=== PATIENT | female | born 1995 | race Caucasian/White ===

== ENCOUNTER → 2016-11-03 | Outpatient (CLI) | payer BC, OTHER ==
[2016-11-06 01:00] LABS: CHLAMYDIA TRACH RNA*** NOT DETECTED (NOT DETECTED); GC (NEIS GONORRHOEAE)RNA** NOT DETECTED (NOT DETECTED)
== END | disposition home or self-care (01) ==
LOC: C.LABSPEC 12:37
PROVIDERS: ATTEND Obstetrics & Gynecology
DX: Z11.3 Encounter for screening for infections with a predominantly sexual mode of transmission (principal)

== ENCOUNTER → 2016-11-03 | Outpatient (CLI) | payer BC | END | disposition home or self-care (01) | LOC: C.PAPS 10:35 | PROVIDERS: ATTEND Obstetrics & Gynecology | DX: Z01.419 Encounter for gynecological examination (general) (routine) without abnormal findings (principal) ==

== ENCOUNTER 2021-06-02 18:38 | Inpatient (IN) ==
[2021-06-02] MEDS ORDERED: ONDANSETRON INJ 2 MG/ML 2 ML VIAL IV PRN (19:07)
[2021-06-02] MEDS ORDERED: LACTATED RINGER'S 1,000 ML IV ONE (19:07)
[2021-06-02] MEDS ORDERED: TERBUTALINE SULFATE 1 MG/ML VIAL SQ PRN (19:07)
[2021-06-02] MEDS ORDERED: ACETAMINOPHEN 325 MG TAB PO PRN ×2 (19:07→20:36)
[2021-06-02] MEDS ORDERED: oxyCODONE/ACETAMINOPHEN 5mg/325mg TAB PO PRN ×2 (19:07→20:36)
[2021-06-02] MEDS ORDERED: LACTATED RINGER'S 1,000 ML IV PRN (19:07)
[2021-06-02 19:43] LABS: Appearance Urine Cloudy (Clear); Bilirubin Urine Negative (Negative); Blood Urine 3+ (Negative); Color Urine Yellow; Glucose Urine UA Negative (Negative); Ketones Urine Negative (Negative); Leukocyte Esterase Urine 1+ (Negative); Nitrite Urine Negative (Negative); Protein Urine 1+ (Negative); Specific Gravity Urine 1.025 (1.000-1.030); Urobilinogen Urine Negative (Negative); pH Urine 6.5 (4.5-7.5)
[2021-06-02 19:47] LABS: Basophils # (auto) 0.02 K/uL (0-0.2); Basophils % (auto) 0.2 %; Eosinophils # (auto) 0.06 K/uL (0-0.5); Eosinophils % (auto) 0.5 %; Hematocrit (blood only) 35.2 % (37-47); Immature Granulocytes # (auto) 0.03 K/uL (0.00-0.02); Immature Granulocytes % (auto) 0.3 %; Lymphocytes # (auto) 2.24 K/uL (1.2-3.4); Lymphocytes % (auto) 18.9 %; Mean Corpuscular Hemoglobin 30.5 pg (25-34); Mean Corpuscular Hgb Conc 34.1 g/dL (32-36); Mean Corpuscular Volume 89.3 fL (80-100); Mean Platelet Volume 10.8 fL (7.4-10.4); Monocytes % (auto) 7.6 %; Neutrophils # (auto) 8.61 K/uL (1.4-6.5); Neutrophils % (auto) 72.5 %; Platelet Count 261 K/uL (130-400); RDW Coefficient of Variation 13.4 % (11.5-14.5); Red Blood Count 3.94 M/uL (4.2-5.4); White Blood Count 11.86 K/uL (4.8-10.8)
[2021-06-02 19:51] LABS: Bacteria Urine Negative (Negative); Epithelial Cell Urine >30 /lpf (0-5); RBC Urine >30 /hpf (0-4); WBC Urine >30 /hpf (0-5)
[2021-06-02 19:52] LABS: Calcium Oxalate Crystals Urine Present (None Prsent)
[2021-06-02] MEDS ORDERED: OXYTOCIN 30 UNITS/500ML NSS ONE (19:57)
[2021-06-02] MEDS ORDERED: LIDOCAINE 1% MPF 5 ML VIAL ONE (20:03)
[2021-06-02] MEDS ORDERED: LIDOCAINE 1% LOCAL 20 ML VIAL ONE (20:09)
[2021-06-02] MEDS ORDERED: OXYTOCIN 30 UNITS/500 ML BAG IV PRN ×2 (20:30→20:36)
[2021-06-02] MEDS ORDERED: SUPERCREAM 0.870% 15 GM JAR EXT PRN (20:36)
[2021-06-02] MEDS ORDERED: DIPHTHERIA/TETANUS/PERTUSSIS 0.5 ML SYR/VIAL IM ONE (20:36)
[2021-06-02] MEDS ORDERED: HYDROCORTISONE ACETATE 25 MG SUPP PR PRN (20:36)
[2021-06-02] MEDS ORDERED: bisacodyL 10 MG SUPP PR PRN (20:36)
[2021-06-02] MEDS ORDERED: MEASLES, MUMPS & RUBELLA VIRUS VIAL SQ ONE (20:36)
[2021-06-02] MEDS ORDERED: BENZOCAINE 20% AER SPR 82.5 GM CAN EXT PRN (20:36)
--- NOTE | 2021-06-02 20:43 | Delivery Summary ---
Vaginal Delivery Summary Date of Service June 02, 2021 Vaginal Delivery Summary Date June 02, 2021 Procedure : labor and delivery Time 2005 p.m. Details of delivery: Patient is a 25-year-old G1, P0 at 34 weeks and 1 day gestation who presents to labor and delivery in active labor, spontaneous rupture of membranes and progressed quickly to fully dilatation and delivered precipitously at 34 and 1 weeks. She was found to be 8 cm dilated and grossly ruptured, progressed to f ully dilatation and pushed through only 3 contractions and delivered the head without difficulty. There was a nuchal cord around the neck x1 which was reduced. He was handed to the mother by mouth and nose were suctioned, there was breathing and moving. Cord was clamped x2 and cut and he was handed off to the waiting pediatric team with Dr. Garibay. Cord blood was obtained. Vagina perineum were checked for lacerations there was a small second-degree vaginal laceration at 5 o'clock position and small first-degree right labial laceration. Rest of the vagina and perineum were intact. 1% lidocaine was used for local anesthesia. First vaginal laceration was repaired with 2-0 Vicryl in a running locked fashion excellent hemostasis achieved. Then labia laceration was repaired with 3-0 Vicryl on SH needle with figure of 8 stitches x3. Excellent hemostasis achieved. Placenta was found to be in the vagina, delivered spontaneous legs intact and complete. Uterus was explored found to have small clots and membranes and those were removed removed. Fundus was firm. EBL was 200 mL. Mom and baby tolerated procedure well, sponge needle instrument count was correct x2. There was a viable female infant Apgars 8, 9 weight is pending. No complications happened and I was present during whole procedure.
--- NOTE | 2021-06-02 20:49 | History & Physical Report ---
Date of Service June 02, 2021 Assessment & Plan (1) labor with delivery: Plan: 5-year-old G1, P0 at 34 weeks and 1 days of gestation presented to labor and delivery with back pain, found to be in active labor and spontaneously ruptured and quickly progressed to full dilatation and delivered baby precipitously. See dictated delivery note and HPI for details. Mom and baby are doing well stable, We will continue to monitor for care. (2) premature rupture of membranes: Admission and Anticipated Discharge Date Admission Date: June 02, 2021 History of Present Illness Primary Care Provider: Aviva Bhakta PA-C Patient is a 25-year-old G1, P0 at 34 weeks 1 day gestation who started to have lower abdominal cramping and spotting this morning after having sexual intercourse with her partner. She had constant back pain since 9 AM when she went to work and her pain got worse and she came back home at 3 PM. Back pain has been in the midline and lower back and has been constant and getting sharper every 3 to 4 minutes. She started to have spotting type of bleeding this afternoon but was never heavy. She has not called answering service about these. She presented to labor and delivery and complained of labor back pain which got sharp and worse. She then spontaneously ruptured at 1930 p.m. When I did speculum exam I saw grossly ruptured pinkish amniotic fluid and head in the vagina. Cervix was 8 cm dilated, 80% effaced head was at 0 station. She really progressed to fully dilatation and desire to push it within few minutes. She delivered a viable female at 2005 p.m. See dictated delivery note for details. Her has been complicated by, 1 obesity with 2 anxiety depression, 3 unknown GBS 4 father of baby is not involved Allergies Allergy/AdvReac Type Severity Reaction Status Date / Time No Known Allergies Allergy Verified 06/02/21 18:51 Home Medications Medication Instructions Recorded Confirmed Type aripiprazole 5 mg tablet (Abilify) 5 mg PO HS 06/02/21 06/02/21 History hydroxyzine HCl 25 mg tablet 25 mg PO HS 06/02/21 06/02/21 History vortioxetine 5 mg tablet 5 mg PO HS 06/02/21 06/02/21 History (Trintellix) Patient History Medical History (Updated 06/02/21 @ 20:48 by Jocelyn Barboza MD) Depression Family History Other No pertinent family history in first degree relatives Social History Smoking Status: Never smoker Hx Alcohol Use: No Hx Substance Use: Yes Last Used Substance: Days (ago) Preferred Language: Sami Communication Ability: Effective Beliefs That Will Affect Care: None marital status: Single Current Living Situation: Family Other Information That Helps Us Care for You: No Feels Safe at Home: Yes Safety Concerns: Feels Safe At This Time Assistive Devices: None Review of Systems as per Subjective / HPI Physical Exam Constitutional: well developed, well nourished and + acute distress (Severe back pain) Genitourinary: normal external appearance (Grossly ruptured pinkish amniotic fluid) Manual OB Exam: + cervical dilation 8 cm, + cervical effacement 80% and + station 0 OB Exam Monitor Tracing: + external uterine monitor used and + category I Results & Data ([facility]) Vital Signs (Past 12 Hours) Vital Signs Temp Pulse Resp BP Pulse Ox 06/02/21 20:26 84 125/66 06/02/21 20:14 87 100 06/02/21 20:09 68 99 06/02/21 20:05 118 H 92 06/02/21 20:04 99 H 97 06/02/21 18:49 37.0 C 18 06/02/21 18:48 78 148/79 H Laboratory Results Lab Results 06/02/21 06/02/21 Range/Units 19:25 19:34 WBC 11.86 H (4.8-10.8) K/uL RBC 3.94 L (4.2-5.4) M/uL Hgb 12.0 (12.0-16.0) g/dL Hct 35.2 L (37-47) % MCV 89.3 (80-100) fL MCH 30.5 (25-34) pg MCHC 34.1 (32-36) g/dL RDW Std Deviation 44.0 (36.4-46.3) fL RDW Coeff of Toni 13.4 (11.5-14.5) % Plt Count 261 (130-400) K/uL MPV 10.8 H (7.4-10.4) fL Immature Gran % (Auto) 0.3 % Neut % (Auto) 72.5 % Lymph % (Auto) 18.9 % [place] % (Auto) 7.6 % Eos % (Auto) 0.5 % Baso % (Auto) 0.2 % Neut # (Auto) 8.61 H (1.4-6.5) K/uL Lymph # (Auto) 2.24 (1.2-3.4) K/uL [place] # (Auto) 0.90 H (0.11-0.59) K/uL Eos # (Auto) 0.06 (0-0.5) K/uL Baso # (Auto) 0.02 (0-0.2) K/uL Immature Gran # (Auto) 0.03 H (0.00-0.02) K/uL Urine Color Yellow Urine Appearance Cloudy A (Clear) Urine pH 6.5 (4.5-7.5) Ur Specific [place] 1.025 (1.000-1.030) Urine Protein 1+ H (Negative) Urine Glucose (UA) Negative (Negative) Urine Ketones Negative (Negative) Urine Blood 3+ H (Negative) Urine Nitrite Negative (Negative) Urine Bilirubin Negative (Negative) Urine Urobilinogen Negative (Negative) Ur Leukocyte Esterase 1+ H (Negative) Urine RBC >30 H (0-4) /hpf Urine WBC >30 H (0-5) /hpf Ur Epithelial Cells >30 H (0-5) /lpf Calcium Oxalate Crystal Present A (None Prsent) Urine Bacteria Negative (Negative)
[2021-06-03 06:38] LABS: Hematocrit (blood only) 32.4 % (37-47); Hemoglobin 11.1 g/dL (12.0-16.0); Mean Corpuscular Hemoglobin 30.7 pg (25-34); Mean Corpuscular Hgb Conc 34.3 g/dL (32-36); Mean Corpuscular Volume 89.8 fL (80-100); Mean Platelet Volume 10.6 fL (7.4-10.4); Platelet Count 239 K/uL (130-400); RDW Coefficient of Variation 13.4 % (11.5-14.5); RDW Standard Deviation 43.9 fL (36.4-46.3); Red Blood Count 3.61 M/uL (4.2-5.4); White Blood Count 14.18 K/uL (4.8-10.8)
--- NOTE | 2021-06-03 09:01 | Obstetrical Progress Note ---
Date of Service June 03, 2021 Subjective Ambulation: ambulating normally Voiding: no voiding problems Passing Gas:: Yes Diet Tolerance:: regular diet Feeding Type:: breast feeding Current Pain Level(1-10): 0 doing well Physical Exam Constitutional WD/WN, vitals as above comfortable abdomen soft and non-tender fundus firm no edema neg Nilda's tent d/c in AM Results & Data ([facility]) Vital Signs (Past 12 Hours) Vital Signs Temp Pulse Pulse Resp BP BP Pulse Ox 06/03/21 04:36 37 C 65 16 134/86 100 06/03/21 03:05 37.1 C 70 17 132/89 99 06/02/21 23:00 37.4 C 75 16 131/83 98 06/02/21 22:24 75 128/79 06/02/21 22:11 80 129/78 06/02/21 21:56 80 124/79 06/02/21 21:41 68 123/73 06/02/21 21:26 81 127/81 06/02/21 21:11 70 125/79 Laboratory Results Laboratory Results - last 48 hr 06/02/21 06/02/21 06/02/21 19:25 19:34 20:35 WBC 11.86 H RBC 3.94 L Hgb 12.0 Hct 35.2 L MCV 89.3 MCH 30.5 MCHC 34.1 RDW Std Deviation 44.0 RDW Coeff of Toni 13.4 Plt Count 261 MPV 10.8 H Immature Gran % (Auto) 0.3 Neut % (Auto) 72.5 Lymph % (Auto) 18.9 [place] % (Auto) 7.6 Eos % (Auto) 0.5 Baso % (Auto) 0.2 Neut # (Auto) 8.61 H Lymph # (Auto) 2.24 [place] # (Auto) 0.90 H Eos # (Auto) 0.06 Baso # (Auto) 0.02 Immature Gran # (Auto) 0.03 H Urine Color Yellow Urine Appearance Cloudy A Urine pH 6.5 Ur Specific [place] 1.025 Urine Protein 1+ H Urine Glucose (UA) Negative Urine Ketones Negative Urine Blood 3+ H Urine Nitrite Negative Urine Bilirubin Negative Urine Urobilinogen Negative Ur Leukocyte Esterase 1+ H Urine RBC >30 H Urine WBC >30 H Ur Epithelial Cells >30 H Calcium Oxalate Crystal Present A Urine Bacteria Negative COVID-19 Eval Order Covid19 IDNow atMDEC SARS-CoV-2, RNA, NAAT 06/02/21 06/03/21 20:35 06:15 WBC 14.18 H RBC 3.61 L Hgb 11.1 L Hct 32.4 L MCV 89.8 MCH 30.7 MCHC 34.3 RDW Std Deviation 43.9 RDW Coeff of Toni 13.4 Plt Count 239 MPV 10.6 H Immature Gran % (Auto) Neut % (Auto) Lymph % (Auto) [place] % (Auto) Eos % (Auto) Baso % (Auto) Neut # (Auto) Lymph # (Auto) [place] # (Auto) Eos # (Auto) Baso # (Auto) Immature Gran # (Auto) Urine Color Urine Appearance Urine pH Ur Specific [place] Urine Protein Urine Glucose (UA) Urine Ketones Urine Blood Urine Nitrite Urine Bilirubin Urine Urobilinogen Ur Leukocyte Esterase Urine RBC Urine WBC Ur Epithelial Cells Calcium Oxalate Crystal Urine Bacteria COVID-19 Eval Order SARS-CoV-2, RNA, NAAT NEGATIVE
[2021-06-03] MEDS: DOCUSATE SODIUM 100 MG CAP PO SCH ×2 (09:40→20:47)
[2021-06-03] MEDS: PRENATAL VITAMIN 1 TAB PO SCH (09:40)
[2021-06-03] MEDS: FERROUS SULFATE 325 MG TAB PO SCH (09:40)
[2021-06-03] MEDS: IBUPROFEN 600 MG TAB PO PRN (09:40)
[2021-06-03] MEDS ORDERED: bisacodyL 5 MG TABEC PO SCH (20:00)
[2021-06-03] MEDS ORDERED: ARIPiprazole 15 MG TAB PO SCH (21:00)
[2021-06-03] MEDS ORDERED: hydrOXYzine HCl 25 MG TAB PO STA (21:02)
[2021-06-03] MEDS ORDERED: Nursing to Pharmacy Communication SCH (21:15)
[2021-06-03] MEDS ORDERED: VORTIOXETINE HYDROBROMIDE PO SCH (22:30)
[2021-06-04 07:44] LABS: Hematocrit (blood only) 32.1 % (37-47); Hemoglobin 10.7 g/dL (12.0-16.0)
--- NOTE | 2021-06-04 08:34 | Obstetrical Progress Note ---
Date of Service June 04, 2021 Assessment & Plan Admission and Anticipated Discharge Date Admission Date: June 02, 2021 Subjective Patient is seen and examined. She feels well, no complaints. Ambulating without dizziness Voiding without difficulty Tolerating regular diet with out N&V Bleeding is minimal No fever/ chills/ CP/ SOB/ N&V/ Leg pain Breast and bottle feeding without problems Vital Signs Temp Pulse Resp BP Pulse Ox 06/03/21 23:05 37.1 C 84 16 130/86 100 06/03/21 20:00 37.1 C 89 16 134/86 98 06/03/21 16:55 37.1 C 90 22 123/84 06/03/21 12:20 36.9 C 94 H 19 133/87 06/03/21 09:45 37.1 C 92 H 21 134/85 Lab Results 06/02/21 06/02/21 06/02/21 Range/Units 19:25 19:34 20:35 WBC 11.86 H (4.8-10.8) K/uL RBC 3.94 L (4.2-5.4) M/uL Hgb 12.0 (12.0-16.0) g/dL Hct 35.2 L (37-47) % MCV 89.3 (80-100) fL MCH 30.5 (25-34) pg MCHC 34.1 (32-36) g/dL RDW Std Deviation 44.0 (36.4-46.3) fL RDW Coeff of Toni 13.4 (11.5-14.5) % Plt Count 261 (130-400) K/uL MPV 10.8 H (7.4-10.4) fL Immature Gran % (Auto) 0.3 % Neut % (Auto) 72.5 % Lymph % (Auto) 18.9 % [place] % (Auto) 7.6 % Eos % (Auto) 0.5 % Baso % (Auto) 0.2 % Neut # (Auto) 8.61 H (1.4-6.5) K/uL Lymph # (Auto) 2.24 (1.2-3.4) K/uL [place] # (Auto) 0.90 H (0.11-0.59) K/uL Eos # (Auto) 0.06 (0-0.5) K/uL Baso # (Auto) 0.02 (0-0.2) K/uL Immature Gran # (Auto) 0.03 H (0.00-0.02) K/uL Urine Color Yellow Urine Appearance Cloudy A (Clear) Urine pH 6.5 (4.5-7.5) Ur Specific [place] 1.025 (1.000-1.030) Urine Protein 1+ H (Negative) Urine Glucose (UA) Negative (Negative) Urine Ketones Negative (Negative) Urine Blood 3+ H (Negative) Urine Nitrite Negative (Negative) Urine Bilirubin Negative (Negative) Urine Urobilinogen Negative (Negative) Ur Leukocyte Esterase 1+ H (Negative) Urine RBC >30 H (0-4) /hpf Urine WBC >30 H (0-5) /hpf Ur Epithelial Cells >30 H (0-5) /lpf Calcium Oxalate Crystal Present A (None Prsent) Urine Bacteria Negative (Negative) COVID-19 Eval Order Covid19 IDNow Replaced by [facility] SARS-CoV-2, RNA, NAAT (NEGATIVE) 06/02/21 06/03/21 06/04/21 Range/Units 20:35 06:15 07:20 WBC 14.18 H (4.8-10.8) K/uL RBC 3.61 L (4.2-5.4) M/uL Hgb 11.1 L 10.7 L (12.0-16.0) g/dL Hct 32.4 L 32.1 L (37-47) % MCV 89.8 (80-100) fL MCH 30.7 (25-34) pg MCHC 34.3 (32-36) g/dL RDW Std Deviation 43.9 (36.4-46.3) fL RDW Coeff of Toni 13.4 (11.5-14.5) % Plt Count 239 (130-400) K/uL MPV 10.6 H (7.4-10.4) fL Immature Gran % (Auto) % Neut % (Auto) % Lymph % (Auto) % [place] % (Auto) % Eos % (Auto) % Baso % (Auto) % Neut # (Auto) (1.4-6.5) K/uL Lymph # (Auto) (1.2-3.4) K/uL [place] # (Auto) (0.11-0.59) K/uL Eos # (Auto) (0-0.5) K/uL Baso # (Auto) (0-0.2) K/uL Immature Gran # (Auto) (0.00-0.02) K/uL Urine Color Urine Appearance (Clear) Urine pH (4.5-7.5) Ur Specific [place] (1.000-1.030) Urine Protein (Negative) Urine Glucose (UA) (Negative) Urine Ketones (Negative) Urine Blood (Negative) Urine Nitrite (Negative) Urine Bilirubin (Negative) Urine Urobilinogen (Negative) Ur Leukocyte Esterase (Negative) Urine RBC (0-4) /hpf Urine WBC (0-5) /hpf Ur Epithelial Cells (0-5) /lpf Calcium Oxalate Crystal (None Prsent) Urine Bacteria (Negative) COVID-19 Eval Order SARS-CoV-2, RNA, NAAT NEGATIVE (NEGATIVE) PE: General: Alert, orientedx3, NAD Abd: soft, NT, fundus firm, below Umbilicus Perineum intact, Lochia rubra minimal Ext; NT, no edema AP: 25 yo s/p , ppd# 2 VSS Afebrile doing well Continue routine care All questions were answered Discussed when to call D/C [facility] tonight Results & Data ([facility]) Vital Signs (Past 12 Hours) Vital Signs Temp Pulse Resp BP Pulse Ox 06/03/21 23:05 37.1 C 84 16 130/86 100
[2021-06-04] MEDS: DOCUSATE SODIUM 100 MG CAP PO SCH ×2 (08:57→16:01)
[2021-06-04] MEDS: FERROUS SULFATE 325 MG TAB PO SCH (08:57)
[2021-06-04] MEDS: PRENATAL VITAMIN 1 TAB PO SCH (08:57)
[2021-06-04] MEDS: IBUPROFEN 600 MG TAB PO PRN (16:06)
== END 2021-06-04 17:44 | disposition home or self-care (01) | DRG 807 ==
LOC: OPB 18:38 → 4S1 18:41 → 4S2 23:37